=== PATIENT | male | born 1980 | race Caucasian/White ===

== ENCOUNTER → 2020-02-15 | Outpatient (CLI) | payer OTHER ==
[2020-02-15 09:47] LABS: ABSOLUTE NEUTROPHILS 2.2 thou/uL (1.4-8.2); BASOPHILS 0.7 % (0.0-2.0); EOSINOPHILS 6.7 % (0.0-3.0); HEMATOCRIT 44.4 % (42.0-52.0); HEMOGLOBIN 14.7 gm/dL (14.0-18.0); LYMPHOCYTES 36.3 % (24.0-44.0); MONOCYTES 8.6 % (1.0-8.0); PLATELET COUNT 244 thou/uL (150-400); POLYS 47.7 % (36.0-66.0); RBC 5.05 mil/uL (4.50-6.00); RDW 12.2 % (10.5-14.5); WBC 4.5 thou/uL (4.0-11.0)
[2020-02-15 10:05] LABS: ALBUMIN 3.8 g/dL (3.4-5.0); ANION GAP 6 mmol/L (7-16); BUN 15 mg/dL (7-18); CHLORIDE 109 mmol/L (98-107); CO2 31 mmol/L (21-32); CREATININE 1.1 mg/dL (0.7-1.3); GLUCOSE 97 mg/dL (74-106); POTASSIUM 4.3 mmol/L (3.5-5.1); SGOT 16 U/L (15-37); SGPT 19 U/L (30-65); SODIUM 146 mmol/L (136-145); TOTAL BILIRUBIN 0.5 mg/dL (0.2-1.0); TOTAL PROTEIN 6.8 g/dL (6.4-8.2)
[2020-02-15 15:19] LABS: CHOLESTEROL 194 mg/dL (<200); HDL CHOLESTEROL 68 mg/dL (>40); LDL CHOLESTEROL 117 mg/dL (<100); TC:HDL 2.9 Ratio (Not establshd); TRIGLYCERIDE 45 mg/dL (<150); VLDL 9 mg/dL (<40)
== END ==
LOC: LAB 09:19
PROVIDERS: ATTEND Family Medicine
DX: Z13.220 Encounter for screening for lipoid disorders (principal); F90.9 Attention-deficit hyperactivity disorder, unspecified type